=== PATIENT | male | born 1975 | race Two or more races ===

== ENCOUNTER 2018-07-02 02:20 | Observation (INO) | payer SELFPAY ==
[2018-07-02] MEDS ORDERED: Diphtheria,Pertussis(Acell),Tetanus Vaccine 0.5 ML Syringe IM ONE (02:22)
[2018-07-02] MEDS ORDERED: Sodium Chloride 0.9% 10 ML Syringe FLUSH PRN (02:22)
[2018-07-02] MEDS ORDERED: Sodium Chloride 0.9% 2.5 ML Syringe FLUSH PRN (02:22)
[2018-07-02] MEDS ORDERED: Sodium Chloride 0.9% 1,000 ML IV ONE (02:22)
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
[2018-07-02] MEDS ORDERED: Lactated Ringers 1,000 ML IV SCH ×2 (03:45→04:30)
[2018-07-02] MEDS ORDERED: Ondansetron 4 MG/2 ML SDV IVPUSH ONE (04:05)
[2018-07-02] MEDS ORDERED: Ketorolac 30 MG/ML SDV IVPUSH ONE (04:05)
[2018-07-02] MEDS ORDERED: Acetaminophen/HYDROcodone 325-5 MG Tab PO PRN (04:30)
[2018-07-02] MEDS ORDERED: HYDROmorphone 1 MG/ML Syringe IVPUSH PRN (04:30)
[2018-07-02] MEDS ORDERED: Ondansetron 4 MG/2 ML SDV IVPUSH PRN (04:30)
[2018-07-02] MEDS ORDERED: diphenhydrAMINE 50 MG/ML SDV IVPUSH PRN (08:07)
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
[2018-07-02] MEDS: Acetaminophen/HYDROcodone 325-5 MG Tab PO PRN ×2 (09:00→16:21)
[2018-07-02] MEDS ORDERED: Multivitamin Tab PO SCH (09:30)
[2018-07-02] MEDS ORDERED: Sodium Chloride 0.65% Nasal Spray 45 ML Bottle NAS PRN (15:45)
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
--- NOTE | 2018-07-03 11:22 | CR ---
EXAM DATE: 07/02/18 PATIENT'S AGE: 43 Patient: REMEDIOS SIMMONS Facility: [facility] Site . Site : 1975 Study: XRay-Shoulder Left [id number]/7/2018 2:47:00 PM Ordering Physician: Keny Todd Final Report: INDICATION: Shoulder pain TECHNIQUE: Shoulder radiograph 1 view left COMPARISON: None FINDINGS: Bone: No acute fractures or aggressive bone lesions are identified. Joint: The glenohumeral is unremarkable. The acromioclavicular joint is unremarkable. Soft tissue: Unremarkable. The visualized hemithorax is unremarkable in appearance. No radiopaque foreign bodies are seen. IMPRESSIONS: 1. No acute osseous injuries or abnormalities are noted. 2. Complete radiographic assessment will require at least an additional orthogonal view. Dictated by Julio Cesar Dumont MD @ 07/02/2018 2:51:36 PM Dictated by: Julio Cesar Dumont MD @ 07/02/2018 14:51:42 Signed by: Julio Cesar Dumont MD @07/02/2018 2:51:42 PM (Electronic Signature) Report Signed by Proxy. [facility]
== END 2018-07-02 16:30 ==
LOC: MW.ED 02:20 → MW.MS 04:03
PROVIDERS: ADMIT Surgery; ATTEND Surgery
DX: S02.81XA Fracture of other specified skull and facial bones, right side, initial encounter for closed fracture (principal); S02.2XXA Fracture of nasal bones, initial encounter for closed fracture; S06.9X9A Unspecified intracranial injury with loss of consciousness of unspecified duration, initial encounter; Y09 Assault by unspecified means; F10.920 Alcohol use, unspecified with intoxication, uncomplicated; Y90.7 Blood alcohol level of 200-239 mg/100 ml
CPT/HCPCS: 70450; 70486; 71045; 72125; 73020; 73502; 80053; 83735; 85025; 85610; 90471; 90715; 96361; 96374; 96375; 99285; A9270; G0480; J1885; J2405; J7040; J7120; 99284